=== PATIENT | female | born 1980 | race Caucasian/White ===

== ENCOUNTER 2017-03-27 01:16 | Inpatient (IN) | payer OTHER ==
[2017-03-27] MEDS ORDERED: SODIUM CHLORIDE 0.9% 1,000 ML IV STA (01:29)
--- NOTE | 2017-03-27 01:50 | ED ---
General Adult HPI - General Chief complaint: Abdominal Pain Stated complaint: abd pain Time Seen by Provider: 03/27/17 01:20 Source: patient, EMS, RN notes reviewed Mode of arrival: EMS Limitations: no limitations - History of Present Illness Initial comments: Patient 37-year-old female who presents emergency room today by EMS, the chief complaint of abdominal pain that began approximate 40 minutes prior to arrival. She does admit that she was drinking with some friends had approximately 4 beers also experiencing some abdominal discomfort in the upper abdomen. Patient states pain has resolved quite a bit at this time currently rates it a 2 /10. She states it did double her over at the time. States never experienced anything similar. She denies any other associated symptoms or complaints. Patient also admits to believing that she has a strep throat as she has noticed some white spots the posterior pharynx over the last week. Patient denies any recent fever, chills, shortness of breath, chest pain, back pain, vomiting, numbness or tingling, dysuria or hematuria, constipation or diarrhea, headaches or visual changes, or any other complaints. - Related Data Allergies Allergy/AdvReac Type Severity Reaction Status Date / Time No Known Allergies Allergy Verified 03/27/17 01:24 Review of Systems ROS Statement: Those systems with pertinent positive or pertinent negative responses have been documented in the HPI. ROS Other: All systems not noted in ROS Statement are negative. Past Medical History Past Medical History: Hypertension Additional Past Medical History / Comment(s): heart palpitations History of Any Multi-Drug Resistant Organisms: None Reported Past Surgical History: Section, Cholecystectomy Past Psychological History: Anxiety, Bipolar, Depression Smoking Status: Current every day smoker Past Alcohol Use History: Daily Past Drug Use History: None Reported General Exam - General Exam Comments Initial Comments: General: The patient is awake and alert, in no distress, and does not appear acutely ill. Eye: Pupils are equal, round and reactive to light, extra-ocular movements are intact. No nystagmus. There is normal conjunctiva bilaterally. No signs of icterus. Ears, nose, mouth and throat: There are moist mucous membranes and no oral lesions. Neck: The neck is supple, there is no tenderness or JVD. Cardiovascular: There is a regular rate and rhythm. No murmur, rub or gallop is appreciated. Respiratory: Lungs are clear to auscultation, respirations are non-labored, breath sounds are equal. No wheezes, stridor, rales, or rhonchi. Gastrointestinal: Patient has normal appearance abdomen. Normal bowel sounds. Abdomen soft on palpation. Patient does have some mild discomfort in the epigastric and left upper quadrants. No rebound tenderness. No guarding. Musculoskeletal: Normal ROM, no tenderness. Strength 5/5. Sensation intact. Pulses equal bilaterally 2+. Neurological: A&O x 3. CN II-XII intact, There are no obvious motor or sensory deficits. Coordination appears grossly intact. Speech is normal. Skin: Skin is warm and dry and no rashes or lesions are noted. Psychiatric: Cooperative, appropriate mood & affect, normal judgment. Limitations: no limitations Course Vital Signs 03/27/17 01:18 Temperature 97.4 F L Pulse Rate 94 Respiratory 16 Rate Blood Pressure 127/60 O2 Sat by Pulse 94 L Oximetry Disposition Referrals: Skylar Gregorio MD [Primary Care Provider] - 1-2 days
[2017-03-27 01:56] LABS: Appearance,Urine Clear (Clear); Bilirubin,Urine Negative (Negative); Glucose,Urine (UA) Negative (Negative); Ketones,Urine Negative (Negative); Leukocyte Esterase,Urine Negative (Negative); Mucus,Urine Rare /hpf; Nitrite,Urine Negative (Negative); PH, Urine 5.5 (5.0-8.0); Particle Count 2448; Protein,Urine Negative (Negative); RBC,Urine 1 /hpf (0-5); Specific Gravity,Urine 1.009 (1.001-1.035); Squamous Epithelial Cell,Urine 1 /hpf (0-4); UA Billing (MACRO vs. MICRO) MICRO; Urobilinogen,Urine <2.0 mg/dL (<2.0); WBC,Urine 1 /hpf (0-5)
[2017-03-27 02:13] LABS: Basophils # (A) 0.1 k/uL (0-0.2); Basophils % (A) 1 %; CH 30.7; CHCM 34.9; Eosinophils # (A) 0.5 k/uL (0-0.7); Eosinophils % (A) 6 %; HCT 40.4 % (34.0-46.0); HDW 2.48; HGB 13.3 gm/dL (11.4-16.0); Luc # (Auto) 0.21; Luc % (Auto) 2; Lymphocytes # (A) 2.5 k/uL (1.0-4.8); Lymphocytes % (A) 27 %; MCH 29.1 pg (25.0-35.0); MCHC 32.9 g/dL (31.0-37.0); MCV 88.5 fL (80.0-100.0); Mean Platelet Volume 10.4; Monocytes # (A) 0.5 k/uL (0-1.0); Monocytes % (A) 6 %; Neutrophils # (A) 5.2 k/uL (1.3-7.7); Neutrophils % (A) 58 %; RBC 4.57 m/uL (3.80-5.40); RDW 13.4 % (11.5-15.5); WBC (Perox) 9.11
[2017-03-27 02:18] LABS: ALT 59 U/L (9-52); AST 71 U/L (14-36); Alkaline Phosphatase 75 U/L (38-126); Amylase 190 U/L (30-110); Anion Gap 11 mmol/L; Blood Urea Nitrogen 8 mg/dL (7-17); Calcium 9.2 mg/dL (8.4-10.2); Carbon Dioxide 20 mmol/L (22-30); Chloride 107 mmol/L (98-107); Glucose 99 mg/dL (74-99); Non-African American GFR(MDRD) >60 (>60 ml/min/1.73 sqM); Potassium 3.8 mmol/L (3.5-5.1); Sodium 138 mmol/L (137-145); Total Bilirubin 0.6 mg/dL (0.2-1.3); Total Protein 6.8 g/dL (6.3-8.2)
--- NOTE | 2017-03-27 02:47 | XR ---
EXAM: XR Abdomen, 1 View CLINICAL HISTORY: Reason: pain TECHNIQUE: Frontal supine view of the abdomen/pelvis. COMPARISON: None. FINDINGS: Gastrointestinal tract: Unremarkable. No dilation. Organs: Patient status post cholecystectomy with clips seen in the right upper quadrant. No evidence of organomegaly. Bones/joints: Unremarkable. IMPRESSION: No acute findings.
[2017-03-27] MEDS ORDERED: KETOROLAC 30 MG/ML 1 ML VIAL IVP STA (03:09)
[2017-03-27] MEDS ORDERED: ACETAMINOPHEN TAB 325 MG TAB PO PRN (03:10)
[2017-03-27] MEDS ORDERED: NALOXONE 0.4 MG/ML 1 ML VIAL IV PRN (03:10)
[2017-03-27] MEDS ORDERED: KETOROLAC 30 MG/ML 1 ML VIAL IVP PRN (03:10)
[2017-03-27] MEDS ORDERED: HYDROmorphone 1 MG/ML 1 ML SYRINGE IV PRN (03:10)
[2017-03-27] MEDS ORDERED: HYDROcodone/APAP 5-325MG 1 EACH TAB PO PRN (03:10)
[2017-03-27] MEDS ORDERED: ONDANSETRON 4 MG/2 ML VIAL IVP PRN (03:10)
[2017-03-27] MEDS: SODIUM CHLORIDE 0.9% 1,000 ML IV SCH ×3 (03:42→18:08)
[2017-03-27] MEDS ORDERED: RX INFO: IV CONTRAST WAS GIVEN 1 EACH MISC MISCELLANE PRN (10:17)
--- NOTE | 2017-03-27 12:38 | CT ---
EXAMINATION TYPE: CT abdomen w con DATE OF EXAM: 03/27/2017 COMPARISON: NONE HISTORY: Acute pancreatitis and mononucleosis CT DLP: 1341 mGycm Automated exposure control for dose reduction was used. TECHNIQUE: Helical acquisition of images was performed from the lung bases through the top of iliac crest to include entire abdomen. CONTRAST: Performed without Oral Contrast and with IV Contrast, patient injected with 100 ml mL of Omnipaque 30 0. FINDINGS: Small umbilical hernia contains fat, upper aspect of the rectus muscle on the right shows s ome absence of the posterior fascia contains fat. LUNG BASES: No significant abnormality is appreciated. LIVER/GB: Liver shows low attenuation and is enlarged suggesting hepatic steatosis, gallbladder is ab sent. PANCREAS: No significant abnormality is seen. SPLEEN: Borderline enlarged. ADRENALS: No significant abnormality is seen. KIDNEYS: Subcentimeter focus of low attenuation associated with the lower pole left kidney is noted. Retroaortic left renal vein is noted incidentally. BOWEL: No significant abnormality is seen. LYMPH NODES: No significant abnormality is appreciated. OSSEOUS STRUCTURES: No significant abnormality is seen. FREE AIR: No Free Air visible ASCITES: None visible. RETROPERITONEAL ADENOPATHY: No Retroperitoneal Adenopathy visible. OTHER: IMPRESSION: HEPATIC STEATOSIS, POSTOP CHANGES. ABDOMINAL WALL HERNIA CONTAINING FAT. LOW DENSE FOCUS LEFT KIDNEY IS SUBCENTIMETER IN SIZE OF THE LOWER POLE. HEPATOSPLENOMEGALY.
[2017-03-27] MEDS ORDERED: cloNIDine HCL 0.1 MG TAB PO PRN (12:39)
--- NOTE | 2017-03-27 12:39 | P.HPIM ---
History of Present Illness H&P Date: 03/27/17 Chief Complaint: Abdominal pain, acute pancreatitis, alcoholism, hypertension This is a 57-year-old female patient of Dr. Gregorio with past history of hypertension, mild obesity, obstructive sleep apnea and chronic anemia who apparently drink heavily between 4-6 beers a day 5 days a week. Patient developed to have intractable mid abdominal pain radiating toward the left upper quadrant and radiating to toward the mid thoracic area in the back and right shoulder. Patient symptoms become much worse was associated with mild nausea and low-grade temperature with her current symptoms and nausea and vomiting ended up coming to the emergency department at [facility] where was seen and evaluated. Surprisingly her lipase was 6600 amylase was 119 and abnormal liver function tests with no elevated bilirubin. No other testing within the emergency room, patient was diagnosed with acute pancreatitis started on hydration pain management and admitted to the hospital with above problem. Into patient and her apparently drinks heavily for over 15 years has been drinking 5-7 beers daily almost for the last 3 years she is not able to quit but she think she can. Has not had any further episodes of pancreatitis previously which had mild episode of acute gastritis and diarrhea sometimes can last for a day or 2 and disappear on its own with mid abdominal pain occasionally. Review of Systems Constitutional: Reports anorexia, Reports chronic pain, Reports fatigue, Reports lethargy, Reports night sweats, Reports poor appetite, Reports weight loss, Denies as per HPI, Denies chills, Denies chronic headaches, Denies daytime sleepiness, Denies fever, Denies malaise, Denies sweats, Denies weakness , Denies weight gain Eyes: bilateral as per HPI Ears: bilateral: decreased hearing Ears, nose, mouth and throat: Reports nasal congestion, Reports nasal discharge , Reports sinus pain, Reports sinus pressure, Reports sore throat, Reports vertigo, Denies as per HPI, Denies ant. neck pain, Denies bleeding gums, Denies dental pain, Denies dysphagia, Denies epistaxis, Denies headache, Denies hoarseness, Denies mouth pain, Denies neck fullness/pressure, Denies neck lump, Denies nose pain, Denies odynophagia, Denies post-nasal drip, Denies swelling in mouth, Denies swelling in throat, Denies voice changes Breasts: bilateral: as per HPI Cardiovascular: Reports lightheadedness, Reports palpitations, Reports paroxysmal nocturnal dyspnea, Denies as per HPI, Denies chest pain, Denies claudication, Denies decreased exercise tolerance, Denies dyspnea on exertion, Denies edema, Denies high blood pressure, Denies irregular heart beat, Denies leg edema, Denies orthopnea, Denies phlebitis, Denies rapid heart beat, Denies shortness of breath, Denies syncope Respiratory: Reports congestion, Denies as per HPI, Denies cough, Denies cough with sputum, Denies dyspnea, Denies excessive sputum, Denies hemoptysis, Denies home oxygen, Denies pain, Denies pain on inspiration, Denies pleurisy, Denies respiratory infections, Denies sleep apnea, Denies snoring, Denies wheezing Gastrointestinal: Reports abdominal pain, Reports belching, Reports bloating, Reports constipation, Reports dyspepsia, Reports heartburn, Reports indigestion , Reports loss of appetite, Reports nausea, Denies as per HPI, Denies BRBPR, Denies change in bowel habits, Denies coffee ground emesis, Denies diarrhea, Denies early satiety, Denies excessive gas, Denies hematemesis, Denies hematochezia, Denies jaundice, Denies lactose intolerance, Denies melena, Denies vomiting Genitourinary: Reports dysuria, Reports urgency, Reports urinary frequency, Denies as per HPI, Denies abnormal vaginal bleeding, Denies decreased libido, Denies difficulty conceiving, Denies difficulty voiding, Denies dysmenorrhea, Denies dyspareunia, Denies flank pain, Denies genital sores, Denies hematuria, Denies hot flashes, Denies incomplete emptying, Denies kidney stones, Denies menorrhagia, Denies mixed incontinence, Denies nocturia, Denies pelvic pain, Denies post void dribbling, Denies , Denies prolapse symptoms, Denies stress incontinence, Denies urge incontinence, Denies vaginal discharge, Denies vaginal dryness, Denies vaginal itching, Denies vaginal odor Musculoskeletal: Reports low back pain, Reports myalgias, Denies as per HPI, Denies arm numbness/tingling, Denies atrophy, Denies fractures, Denies frequent falls, Denies gait dysfunction, Denies hot joints, Denies leg numbness/tingling , Denies limitation of motion, Denies loss of height, Denies morning stiffness, Denies muscle cramps, Denies muscle weakness, Denies neck pain, Denies neck stiffness, Denies prior amputations, Denies redness of joints, Denies shooting arm pain, Denies shooting leg pain Integumentary: Denies as per HPI, Denies acne, Denies boils, Denies brittle nails, Denies change in hair/nails, Denies color changes, Denies darkening of skin, Denies depigmentation, Denies dryness, Denies foot/leg ulcers, Denies growths, Denies hirsutism, Denies lesions, Denies onychomycosis, Denies pruritus , Denies rash, Denies sores, Denies striae, Denies unusual bruising, Denies wounds Neurological: Denies as per HPI, Denies aphasia, Denies ataxia, Denies balance difficulties, Denies burning pain, Denies change in mentation, Denies change in smell/taste, Denies change in speech, Denies confusion, Denies convulsions, Denies double vision, Denies gait dysfunction, Denies head injury, Denies headaches, Denies hearing difficulties, Denies lack of coordination, Denies loss of vision, Denies memory loss, Denies migraines, Denies motor disturbance, Denies numbness, Denies paralysis, Denies paresthesias, Denies seizures, Denies sensory deficit, Denies spasticity, Denies syncope, Denies tic, Denies tingling , Denies transient paralysis, Denies tremors, Denies vertigo, Denies weakness, Denies visual changes Psychiatric: Reports anxiety attacks, Reports depression, Denies as per HPI, Denies anhedonia, Denies anxiety, Denies change in appetite, Denies change in libido, Denies change in sleep habits, Denies confusion, Denies difficulty concentrating, Denies disorientation, Denies hallucinations, Denies hopelessness , Denies hypersomnia, Denies insomnia, Denies irritability, Denies memory loss, Denies mood swings, Denies paranoia, Denies sadness/tearfulness, Denies sleep disturbances, Denies suicidal ideation Endocrine: Reports fatigue, Reports flushing, Reports polyuria, Denies as per HPI, Denies cold intolerance, Denies deepening of the voice, Denies excessive sweating, Denies excessive thirst, Denies heat intolerance, Denies high blood sugars, Denies increase in ring/shoe/hat size, Denies low blood sugars, Denies nocturia, Denies palpitations, Denies polydipsia, Denies polyphagia, Denies proptosis, Denies recent glucocorticoid use, Denies thyroid mass, Denies weight change Hematologic/Lymphatic: Reports easy bruising, Denies as per HPI, Denies easy bleeding, Denies lymphadenopathy, Denies lymphedema, Denies thrombophilia Allergic/Immunologic: Denies as per HPI, Denies allergic rhinitis, Denies anaphylaxis, Denies angioedema, Denies gluten intolerance, Denies persistent infections, Denies seasonal allergies, Denies urticaria, Denies wheezing Past Medical History Past Medical History: Hypertension Additional Past Medical History / Comment(s): heart palpitations History of Any Multi-Drug Resistant Organisms: None Reported Past Surgical History: Section, Cholecystectomy Additional Past Surgical History / Comment(s): D&C in 1997 Past Anesthesia/Blood Transfusion Reactions: No Reported Reaction Past Psychological History: Anxiety, Bipolar, Depression Smoking Status: Current every day smoker Past Alcohol Use History: Daily Past Drug Use History: None Reported - Past Family History Mother Additional Family Medical History / Comment(s): Brain cancer, breast cancer, bladder cancer Medications and Allergies Home Medications Medication Instructions Recorded Confirmed Type Multivitamins, Thera [Multivitamin 1 tab PO DAILY 03/27/17 03/27/17 History (formulary)] Allergies Allergy/AdvReac Type Severity Reaction Status Date / Time No Known Allergies Allergy Verified 03/27/17 08:19 Physical Exam Vitals: Vital Signs Temp Pulse Pulse Resp BP BP Pulse Ox 03/27/17 08:00 97.5 F L 98 18 119/63 98 03/27/17 04:42 97.4 F L 82 18 126/80 97 03/27/17 03:43 98.0 F 80 16 136/65 98 03/27/17 01:18 97.4 F L 94 16 127/60 94 L Intake and Output 03/26/17 03/27/17 03/27/17 22:59 06:59 14:59 Intake Total 940 240 Output Total 250 Balance 690 240 Intake: Oral 940 240 Output: Urine 250 Other: # Voids 1 Weight 134.4 kg - Constitutional General appearance: no average body habitus, cooperative, no disheveled, no mild distress, no morbidly obese, no no acute distress, obese, no severe distress, no thin - EENT Eyes: no abnormal pupil, no anicteric sclerae, no disc margins sharp, no edentulous, no EOMI, no PERRLA, no fundus normal, no photophobia, no dentition normal, no poor dentition, no ptosis, no scleral icterus, normal appearance ENT: no hard of hearing, no hearing grossly normal, no NA/AT, normal oropharynx , no other, no pharyngeal erythema, no thrush, no tonsillar exudates, no tonsillar swelling Ears: bilateral: normal - Neck Neck: no lymphadenopathy, normal ROM, no other, no rigidity, no stridor, no thyromegaly Carotids: bilateral: upstroke normal Thyroid: bilateral: normal size - Respiratory Respiratory: bilateral: CTA, diminished, dullness - Cardiovascular Rhythm: regular Heart sounds: normal: S1, S2 Abnormal Heart Sounds: systolic murmur - Gastrointestinal General gastrointestinal: no absent bowel sounds, decreased bowel sounds, distended, no hepatomegaly, no hyperactive bowel sounds, no normal bowel sounds , no organomegaly, no rigid, no scaphoid, soft, no splenomegaly, tenderness, no umbilical hernia, no ventral hernia - Integumentary Integumentary: no calor, no cellulitis, no cyanotic, no decreased turgor, no flushed, no jaundiced, normal, no normal turgor, pale, no rash, no ulcer - Neurologic Neurologic: CNII-XII intact - Musculoskeletal Musculoskeletal: gait normal, generalized weakness, strength equal bilaterally, no right sided weakness, no left sided weakness - Psychiatric Psychiatric: A&O x's 3, appropriate affect Results CBC & Chem 7: 03/27/17 01:57 03/27/17 01:57 Labs: Abnormal Lab Results - Last 24 Hours (Table) 03/27/17 03/27/17 03/27/17 Range/Units 01:43 01:57 01:57 Plt Count 110 L (150-450) k/uL Carbon Dioxide 20 L (22-30) mmol/L AST 71 H (14-36) U/L ALT 59 H (9-52) U/L Amylase 190 H (30-110) U/L Lipase 6678 H (23-300) U/L Urine Blood Trace H (Negative) Hyaline Casts 3 H (0-2) /lpf Urine Mucus Rare H (None) /hpf Thrombosis Risk Factor Assmnt - DVT/VTE Prophylaxis DVT/VTE Prophylaxis: Pharmacologic Prophylaxis ordered, Mechanical Prophylaxis ordered - Choose All That Apply Each Factor Represents 1 point: Obesity (BMI >25), Varicose veins Thrombosis Risk Factor Assessment Total Risk Factor Score: 2 Thrombosis Risk Factor Assessment Level: Low Risk Assessment and Plan Plan: 1 severe acute abdominal pain: Secondary to acute pancreatitis in a chronic pancreatitis and gastritis try to treat underlying disease. 2 acute pancreatitis: Most likely alcohol-related with a current symptoms continue to treat pain hydration consult gastrology patient will be going for abdominal pelvis CAT scan find if she had any chronic finding of pancreatitis such as pseudocyst thickening or other finding. Continue current treatment repeat lipase and amylase continue to keep patient nothing by mouth for the next 24 hours. 3 acute on chronic gastritis: Patient will be on pantoprazole 40 mg daily. 4 hypertension: Has not been on any medications can benefit from being on clonidine 0.1 mg for systolic above 160. 5 obstructive sleep apnea: Has not been diagnosed officially and treated highly recommended to have patient seen in the very for obstructive sleep apnea and if needed CPAP will be needed. 6 smoking: Smoking cessation was addressed patient be on nicotine patch 14 mg daily. 7 chronic alcoholism: Patient will be on prophylaxis management with lorazepam for delirium tremor continue to watch for any change mental status. GI prophylaxis: Patient will be on pantoprazole. DVT prophylaxis: Patient will be on heparin subcutaneous. CODE STATUS: Full code. Expectation from's admission: Patient be in the hospital for more than 2 nights.
[2017-03-27] MEDS: HEPARIN SODIUM,PORCINE 5,000 UNIT/ML 1 ML VIAL SQ SCH (18:06)
[2017-03-28] MEDS: HEPARIN SODIUM,PORCINE 5,000 UNIT/ML 1 ML VIAL SQ SCH
[2017-03-28] MEDS: SODIUM CHLORIDE 0.9% 1,000 ML IV SCH (01:52)
[2017-03-28 06:41] LABS: Basophils % (A) 1 %; CH 30.3; CHCM 34.1; Eosinophils # (A) 0.4 k/uL (0-0.7); Eosinophils % (A) 7 %; HCT 37.9 % (34.0-46.0); HDW 2.47; HGB 12.5 gm/dL (11.4-16.0); Luc # (Auto) 0.12; Luc % (Auto) 2; Lymphocytes # (A) 1.8 k/uL (1.0-4.8); Lymphocytes % (A) 30 %; MCH 29.4 pg (25.0-35.0); MCV 89.2 fL (80.0-100.0); Monocytes # (A) 0.3 k/uL (0-1.0); Monocytes % (A) 4 %; Neutrophils # (A) 3.3 k/uL (1.3-7.7); Neutrophils % (A) 56 %; RBC 4.25 m/uL (3.80-5.40); RDW 13.4 % (11.5-15.5); WBC 5.9 k/uL (3.8-10.6); WBC (Perox) 6.17
[2017-03-28 06:57] LABS: ALT 96 U/L (9-52); AST 70 U/L (14-36); Alkaline Phosphatase 76 U/L (38-126); Amylase <30 U/L (30-110); Anion Gap 7 mmol/L; Blood Urea Nitrogen 7 mg/dL (7-17); Calcium 8.1 mg/dL (8.4-10.2); Carbon Dioxide 23 mmol/L (22-30); Chloride 110 mmol/L (98-107); Glucose 77 mg/dL (74-99); Non-African American GFR(MDRD) >60 (>60 ml/min/1.73 sqM); Potassium 3.9 mmol/L (3.5-5.1); Sodium 140 mmol/L (137-145); Total Bilirubin 0.6 mg/dL (0.2-1.3); Total Protein 5.7 g/dL (6.3-8.2)
[2017-03-28 08:28] LABS: Hepatitis B Surface Ag Index 0.05
[2017-03-28 08:34] LABS: Hepatitis B Core IgM Index 0.01
[2017-03-28 08:40] VITALS: RESP 19
[2017-03-28 08:46] LABS: Hepatitis C Virus IgG Ab Negative (Negative); Hepatitis C Virus IgG Index 0.02
[2017-03-28] MEDS ORDERED: PANTOPRAZOLE 40 MG/10 ML VIAL IVP SCH (09:00)
[2017-03-28] MEDS ORDERED: NICOTINE 14MG/24HR PATCH TRANSDERM SCH (09:00)
--- NOTE | 2017-03-28 09:45 | P.CONS ---
History of Present Illness - Reason for Consult Consult date: 03/28/17 Pancreatitis Requesting physician: Johnnie Hightower - History of Present Illness 37-year-old female with a history of cholecystectomy, morbid obesity BMI 46, obstructive sleep apnea, EtOH 10+ years presented with acute mid upper abdominal pain x 2 days. She was consuming several alcohol drinks 2-3 days weekly sometimes daily. White count 5.9-9. Hemoglobin 12.5-13.3. Platelet 110-174. Total bilirubin 0.6. AST 70-71. ALT 59-96. Alkaline phosphatase 75-76. Amylase 190. Lipase 6678. This morning amylase is less than 30. Lipase 157. Afebrile. CT abdomen hepatic steatosis with enlargement. No significant abnormality seen in the pancreas spleen borderline enlarged. Denies fever chills hematemesis hematochezia melena. Review of Systems Constitutional: Denies fever, chills, sweats, weight gain, or loss. HEENT: Negative for migraines, blurred vision or loss, earaches, drainage, tinnitus, oral mucosal lesions, dysphagia, or odynophagia. CARDIAC: Hypertension Negative for chest pain, arrhythmias, or palpitation. RESPIRATORY: Obstructive sleep apnea Negative for shortness of breath, hemoptysis, cough, or sputum production. GI: See HPI for pertinent findings. : Negative for hematuria, urgency, frequency, polyuria, or dysuria. GYNc: Denies possibility of . Negative vaginal discharge. MUSCULOSKELETAL: Negative for muscle aches, swelling, arthritis, and arthralgias. NEUROLOGIC: Negative for stroke or TIA. ENDOCRINE: Negative for thyroid problems. SKIN: Negative for rash or itching. PSYCHIATRIC: Negative history for depression and anxiety All systems: negative (See HPI) Past Medical History Past Medical History: Hypertension Additional Past Medical History / Comment(s): heart palpitations History of Any Multi-Drug Resistant Organisms: None Reported Past Surgical History: Section, Cholecystectomy Additional Past Surgical History / Comment(s): D&C in 1997 Past Anesthesia/Blood Transfusion Reactions: No Reported Reaction Past Psychological History: Anxiety, Bipolar, Depression Smoking Status: Current every day smoker Past Alcohol Use History: Daily Past Drug Use History: None Reported - Past Family History Mother Additional Family Medical History / Comment(s): Brain cancer, breast cancer, bladder cancer Medications and Allergies Home Medications Medication Instructions Recorded Confirmed Type Multivitamins, Thera [Multivitamin 1 tab PO DAILY 03/27/17 03/27/17 History (formulary)] Allergies Allergy/AdvReac Type Severity Reaction Status Date / Time No Known Allergies Allergy Verified 03/27/17 08:19 Physical Exam Vitals: Vital Signs Temp Pulse Resp BP BP Pulse Ox 03/28/17 00:10 98.3 F 74 18 140/76 97 03/27/17 19:56 97.8 F 86 20 134/63 99 03/27/17 17:55 97.9 F 82 20 152/87 97 03/27/17 12:48 98.9 F 87 16 143/89 97 03/27/17 08:00 97.5 F L 98 18 119/63 98 Intake and Output 03/27/17 03/28/17 03/28/17 22:59 06:59 14:59 Other: # Voids 2 General appearance: The patient is alert, oriented, in no acute distress. HET: Head is normocephalic and atraumatic. Pupils are equal and reactive. Oropharynx is clear without lesions. Neck: Supple without lymphadenopathy. Trachea midline. Heart: S1 S2. Regular rate and rhythm. Lungs: No crackles or wheezes are heard. Abdomen: Soft, very mild midepigastric tenderness, nondistended with bowel sounds. No peritoneal signs. No palpable organomegaly or masses. Extremities: Normal skin color and turgor. No cyanosis, rash, ulceration, clubbing, or edema. Radial and pedal pulses are 2/4 bilaterally. Neurological: No focal deficits. Strength and sensation are grossly intact. Results CBC & Chem 7: 03/28/17 06:10 03/28/17 06:10 Labs: Abnormal Lab Results - Last 24 Hours (Table) 03/28/17 Range/Units 06:10 Chloride 110 H (98-107) mmol/L Calcium 8.1 L (8.4-10.2) mg/dL AST 70 H (14-36) U/L ALT 96 H (9-52) U/L Total Protein 5.7 L (6.3-8.2) g/dL Albumin 3.2 L (3.5-5.0) g/dL Amylase <30 L (30-110) U/L Microbiology - Last 24 Hours (Table) 03/27/17 01:43 Group A Strep Throat Culture - Preliminary Throat CT scan - abdomen: report reviewed (Dr. Bush) Assessment and Plan (1) Alcohol-induced pancreatitis Status: Acute (2) Alcoholic hepatitis Status: Acute (3) Hepatic steatosis Status: Acute (4) Hepatosplenomegaly Status: Acute (5) Morbid obesity with BMI of 45.0-49.9, adult Status: Acute Plan: 1. Alcohol abstinence. Check hepatitis panel. 2. Slow advancement of diet low fat. 3. Discharge per medicine. Thank you for this kind referral and the opportunity to participate in the care of your patient. This consultation was discussed with Dr. Bush. The impression and plan of care have been directed as dictated.
[2017-03-28 12:27] VITALS: BP 144/74; PULSE 71; TEMP 98.4
--- NOTE | 2017-03-28 13:34 | P.DS ---
Providers Date of admission: 03/27/17 02:53 Expected date of discharge: 03/28/17 Attending physician: Johnnie Hightower Consults: 03/27/17 10:07 Consult Physician Routine Consulting Provider: Kaykay Sol Consult Reason/Comments: pancreatitis Do you want consulting provider notified?: Yes Primary care physician: Skylar Gregorio [facility] Course: This is a 37-year-old female patient of Dr. Gregorio with past history of hypertension, mild obesity, obstructive sleep apnea and chronic anemia who apparently drink heavily between 4-6 beers a day 5 days a week. Patient developed to have intractable mid abdominal pain radiating toward the left upper quadrant and radiating to toward the mid thoracic area in the back and right shoulder. Patient symptoms become much worse was associated with mild nausea and low-grade temperature with her current symptoms and nausea and vomiting ended up coming to the emergency department at [facility] where was seen and evaluated. Surprisingly her lipase was 6600 amylase was 119 and abnormal liver function tests with no elevated bilirubin. No other testing within the emergency room, patient was diagnosed with acute pancreatitis started on hydration pain management and admitted to the hospital with above problem. Into patient and her apparently drinks heavily for over 15 years has been drinking 5-7 beers daily almost for the last 3 years she is not able to quit but she think she can. Has not had any further episodes of pancreatitis previously which had mild episode of acute gastritis and diarrhea sometimes can last for a day or 2 and disappear on its own with mid abdominal pain occasionally. 03/28: Patient has been seen by GI. Today, amylase is less than 30 and lipase 157. AST remains at 70 and ALT is 96. Acute hepatitis panel is negative. Again reinforced need for patient stopped drinking alcohol completely. Patient will be discharged home today in stable condition. She denies having abdominal pain. Discharge diagnoses: 1 severe acute abdominal pain: Secondary to acute pancreatitis in a chronic pancreatitis and gastritis 2 acute pancreatitis: Most likely alcohol-related 3 acute on chronic gastritis 4 hypertension 5 obstructive sleep apnea and needs outpatient sleep study 6 smoking: Smoking cessation was addressed 7 chronic alcoholisme. Discharge plan: Return home Impression and plan of care have been directed as dictated by the signing physician. Luisa Miles nurse practitioner acting as scribe for signing physician. Cc: Dr. Gregorio Patient Condition at Discharge: Good Plan - Discharge Summary New Discharge Prescriptions: New cloNIDine HCL [Catapres] 0.05 mg PO BID #15 tab Nicotine 14Mg/24Hr Patch [Habitrol] 1 patch TRANSDERM DAILY #30 patch Continue Multivitamins, Thera [Multivitamin (formulary)] 1 tab PO DAILY Discharge Medication List Multivitamins, Thera [Multivitamin (formulary)] 1 tab PO DAILY 03/27/17 [History ] Nicotine 14Mg/24Hr Patch [Habitrol] 1 patch TRANSDERM DAILY #30 patch 03/28/17 [ Rx] cloNIDine HCL [Catapres] 0.05 mg PO BID #15 tab 03/28/17 [Rx] Follow up Appointment(s)/Referral(s): Kaykay Sol MD [STAFF PHYSICIAN] - 04/29/17 3:45 pm Skylar Gregorio MD [Primary Care Provider] - 04/04/17 1:45 pm Patient Instructions/Handouts: Pancreatitis (DC) Activity/Diet/Wound Care/Special Instructions: Have Dr. Tripathi schedule OP sleep study. Take your new medication catapres starting tonight and twice a day after until seen by your doctor. Discharge Disposition: HOME SELF-CARE
== END 2017-03-28 13:34 | disposition home or self-care (01) | DRG 440 ==
LOC: EC 01:16 → 6PED 02:53
PROVIDERS: ADMIT Internal Medicine Geriatric Medicine; ATTEND Internal Medicine Geriatric Medicine
DX: K85.20 Alcohol induced acute pancreatitis without necrosis or infection (principal); E66.01 Morbid (severe) obesity due to excess calories; K76.0 Fatty (change of) liver, not elsewhere classified; I10 Essential (primary) hypertension; G47.33 Obstructive sleep apnea (adult) (pediatric); G89.29 Other chronic pain; F10.20 Alcohol dependence, uncomplicated; R16.2 Hepatomegaly with splenomegaly, not elsewhere classified; K29.50 Unspecified chronic gastritis without bleeding; K29.00 Acute gastritis without bleeding; F32.9 Major depressive disorder, single episode, unspecified; F41.9 Anxiety disorder, unspecified; J39.2 Other diseases of pharynx; R63.4 Abnormal weight loss; R74.0 Nonspecific elevation of levels of transaminase and lactic acid dehydrogenase [LDH]; F17.200 Nicotine dependence, unspecified, uncomplicated; K86.0 Alcohol-induced chronic pancreatitis; Z80.8 Family history of malignant neoplasm of other organs or systems; Z80.3 Family history of malignant neoplasm of breast; Z80.52 Family history of malignant neoplasm of bladder; Z90.49 Acquired absence of other specified parts of digestive tract; Z71.6 Tobacco abuse counseling; Z71.41 Alcohol abuse counseling and surveillance of alcoholic; Z87.19 Personal history of other diseases of the digestive system; Z86.2 Personal history of diseases of the blood and blood-forming organs and certain disorders involving the immune mechanism; Z86.79 Personal history of other diseases of the circulatory system
CPT/HCPCS: 36415; 74000; 74160; 80053; 80074; 81001; 81025; 82150; 83690; 85025; 86308; 87081; 87430; 96374; 99285

== ENCOUNTER → 2017-04-04 | Outpatient (CLI) | payer OTHER ==
[2017-04-04 18:58] LABS: Basophils # (A) 0.1 k/uL (0-0.2); Basophils % (A) 1 %; CH 30.3; CHCM 34.9; Eosinophils # (A) 0.4 k/uL (0-0.7); Eosinophils % (A) 6 %; HCT 41.1 % (34.0-46.0); HDW 2.53; Luc # (Auto) 0.16; Luc % (Auto) 2; Lymphocytes # (A) 2.1 k/uL (1.0-4.8); Lymphocytes % (A) 27 %; MCH 29.7 pg (25.0-35.0); MCHC 34.1 g/dL (31.0-37.0); MCV 87.1 fL (80.0-100.0); Mean Platelet Volume 9.8; Monocytes # (A) 0.6 k/uL (0-1.0); Monocytes % (A) 7 %; Neutrophils # (A) 4.6 k/uL (1.3-7.7); Neutrophils % (A) 58 %; RBC 4.72 m/uL (3.80-5.40); RDW 13.5 % (11.5-15.5); WBC (Perox) 7.24
[2017-04-04 19:03] LABS: ALT 81 U/L (9-52); AST 43 U/L (14-36); Alkaline Phosphatase 73 U/L (38-126); Amylase <30 U/L (30-110); Anion Gap 11 mmol/L; Blood Urea Nitrogen 9 mg/dL (7-17); Calcium 9.9 mg/dL (8.4-10.2); Carbon Dioxide 25 mmol/L (22-30); Chloride 104 mmol/L (98-107); Cholesterol 167 mg/dL (<200); Glucose 98 mg/dL (74-99); HDL Cholesterol 51 mg/dL (40-60); Non-African American GFR(MDRD) >60 (>60 ml/min/1.73 sqM); Potassium 4.1 mmol/L (3.5-5.1); Sodium 140 mmol/L (137-145); Total Bilirubin 0.5 mg/dL (0.2-1.3); Total Protein 7.2 g/dL (6.3-8.2)
[2017-04-04 21:15] LABS: Hemoglobin A1C 5.4 % (4.2-6.1)
== END | disposition home or self-care (01) ==
LOC: MMGSC 15:14
PROVIDERS: ATTEND Family Medicine
DX: E66.9 Obesity, unspecified (principal); K85.90 Acute pancreatitis without necrosis or infection, unspecified; Z86.79 Personal history of other diseases of the circulatory system
CPT/HCPCS: 36415; 80053; 80061; 82150; 83036; 83690; 84439; 84443; 85025

== ENCOUNTER 2017-05-01 06:38 | Day surgery (SDC) | payer OTHER ==
[2017-04-26 11:02] VITALS: BMI 45.4
[~2017-05-01 06:38] MED LIST: DEXAMETHASONE SOD PHOSPHATE 10 MG/ML 1 ML VIAL IV ONE; HEPARIN SODIUM,PORCINE 5,000 UNIT/ML 1 ML VIAL SQ ONE; LACTATED RINGERS 1,000 ML IV SCH; LIDOCAINE 1% 20 ML VIAL (10MG/ML) FOR IV START INTRADERMA PRN; ONDANSETRON 4 MG/2 ML VIAL IVP ONE; SCOPOLAMINE 1.5MG/72HR PATCH TRANSDERM ONE; ceFAZolin 3 GM in SODIUM CHLORIDE 0.9% 100 ML IVPB ONE
[2017-05-01] MEDS ORDERED: BUPIVACAINE (PF) 0.25% 30 ML VIAL SQ ONE (07:17)
--- NOTE | 2017-05-01 07:56 | P.GSHP ---
History of Present Illness H&P Date: 05/01/17 Chief Complaint: Incarcerated umbilical hernia 's is a 37-year-old female who's had complaints of perineal pain. Her recent CAT scan shows evidence of an incarcerated umbilical hernia. She presents today for laparoscopic robotic-assisted repair. Past Medical History Past Medical History: Hypertension Additional Past Medical History / Comment(s): Heart palpitations, Hospitalized at [facility] 03/27-03/28/17 for pancreatitis., States she had [place] & enlarged spleen also. ,States she needs testing for sleep apnea. History of Any Multi-Drug Resistant Organisms: None Reported Past Surgical History: Section, Cholecystectomy Additional Past Surgical History / Comment(s): D&C in 1997 Past Anesthesia/Blood Transfusion Reactions: No Reported Reaction Past Psychological History: Anxiety, Bipolar, Depression Additional Psychological History / Comment(s): . Smoking Status: Heavy tobacco smoker Past Alcohol Use History: None Reported, Daily Additional Past Alcohol Use History / Comment(s): SMOKES 1 PPD. SMOKING SINCE 17 YEARS OLD. - SMOKING FOR 20 YEARS. STATES NO ALCOHOL SINCE HOSPITALIZED Mar WITH PANCREATITIS. STATES SHE WAS DRINKING 5-7 BEERS 2-3 TIMES PER WEEK. Past Drug Use History: None Reported - Past Family History Mother Additional Family Medical History / Comment(s): Brain cancer, breast cancer, bladder cancer Medications and Allergies Home Medications Medication Instructions Recorded Confirmed Type amLODIPine BESYLATE/BENAZEPRIL 1 cap PO DAILY 04/26/17 05/01/17 History [Lotrel 5-20 mg Capsule] Allergies Allergy/AdvReac Type Severity Reaction Status Date / Time morphine Allergy Unknown SORES, Verified 05/01/17 07:04 ITCHING Surgical - Exam Vital Signs Temp Pulse Resp BP Pulse Ox 98.0 F 87 16 125/67 97 05/01/17 07:07 05/01/17 07:07 05/01/17 07:07 05/01/17 07:07 05/01/17 07:07 BMI 45 - General well developed - Eyes PERRL - ENT normal pinna - Cardiovascular Rhythm: regular - Abdomen Abdomen: soft, non tender Hernia: umbilical (Incarcerated umbilical hernia) Assessment and Plan Plan: Incarcerated umbilical hernia. We'll perform laparoscopic robotic assistance repair.
[2017-05-01] MEDS ORDERED: KETOROLAC 30 MG/ML 1 ML VIAL ONE (08:00)
[2017-05-01] MEDS ORDERED: SUCCINYLCHOLINE CHLORIDE VIAL 200 MG/10 ML VIAL IV ONE (08:00)
[2017-05-01] MEDS ORDERED: PROPOFOL 10 MG/ML 20 ML VIAL IV ONE (08:00)
[2017-05-01] MEDS ORDERED: GLYCOPYRROLATE 0.2 MG/ML 2 ML VIAL ONE (08:00)
[2017-05-01] MEDS ORDERED: MIDAZOLAM 2 MG/2 ML VIAL ONE (08:00)
[2017-05-01] MEDS ORDERED: LIDOCAINE 1% INJ 10MG/ML (20 ML MDV) ONE (08:00)
[2017-05-01] MEDS ORDERED: fentaNYL (PF) 50 MCG/ML 2 ML AMP ONE (08:00)
[2017-05-01] MEDS ORDERED: HYDROmorphone (PF) 1 MG/ML ONE (08:00)
[2017-05-01] MEDS ORDERED: VECURONIUM 10 MG VIAL IV ONE (08:00)
[2017-05-01] MEDS ORDERED: NEOSTIGMINE 1 MG/ML 10 ML VIAL ONE (08:00)
--- NOTE | 2017-05-01 09:20 | P.OP ---
Date of Procedure: 05/01/17 Preoperative Diagnosis: Incarcerated umbilical hernia Postoperative Diagnosis: Adhesions Incarcerated umbilical hernia Procedure(s) Performed: Robotic-assisted repair of incarcerated umbilical hernia Lysis of adhesions Partial omentectomy Anesthesia: CLARA Surgeon: Mla Solano Estimated Blood Loss (ml): 20 Pathology: other (Incarcerated greater omentum) Condition: stable Disposition: PACU Description of Procedure: The patient's placed on the operating table in the supine position. She received general anesthesia. Her abdomen was prepped and draped in sterile fashion. The abdomen was entered in the left upper quadrant using a 5 mm optical trocar under direct visualization. The abdomen was then insufflated and then after adequate insufflation the 5 mm laparoscope was placed into the peritoneal cavity. Next a 8 mm robotic trochars placed in the left lower quadrant and a 12 mm trochars placed the left lateral position and the original 5 mm trocar was exchanged for an 8 mm robotic trocar. The patient's placed left side up position and then docked the robot. Patient had incarcerated fat within the umbilical hernia. This was dissected free using the hook cautery. The fascial defect was then closed with OV lock suture. The repair was then buttressed with ventral light ST mesh and this was secured with 2 OV lock suture the patient was then undocked from the robot. The needles were retrieved. The incarcerated tissue was removed. The 12 mm trocar site was closed with 0 Ethibond suture. The skin was closed interrupted 3-0 Monocryl suture. Dermabond was applied. Patient top she will well and was sent to recovery in stable condition.
[2017-05-01 09:40] VITALS: TEMP 96.8
[2017-05-01] MEDS: HYDROmorphone 1 MG/ML 1 ML SYRINGE IVP PRN ×4 (09:41→10:21)
[2017-05-01] MEDS ORDERED: LACTATED RINGERS 1,000 ML IV ONE (11:01)
[2017-05-01 11:13] VITALS: RESP 16
[2017-05-01 11:40] VITALS: BP 103/68
[2017-05-01 11:41] VITALS: PULSE 88
== END 2017-05-01 12:09 | disposition home or self-care (01) ==
LOC: OR 06:38
PROVIDERS: ATTEND Surgery
DX: K42.0 Umbilical hernia with obstruction, without gangrene (principal); K66.0 Peritoneal adhesions (postprocedural) (postinfection); I10 Essential (primary) hypertension; E66.01 Morbid (severe) obesity due to excess calories; Z68.42 Body mass index [BMI] 45.0-49.9, adult; F17.200 Nicotine dependence, unspecified, uncomplicated; Z79.899 Other long term (current) drug therapy; Z88.5 Allergy status to narcotic agent
CPT/HCPCS: 49587; S2900; 81025; 88302

== ENCOUNTER 2018-02-18 21:47 | Emergency (ER) | payer OTHER ==
[2018-02-18 22:12] VITALS: BP 172/98; PULSE 84; RESP 18; TEMP 98.4
[2018-02-19 05:01] LABS: Appearance,Urine Cloudy (Clear); Bilirubin,Urine Negative (Negative); Blood,Urine Negative (Negative); Color,Urine Yellow; Glucose,Urine (UA) Negative (Negative); Ketones,Urine Negative (Negative); Leukocyte Esterase,Urine Negative (Negative); Mucus,Urine Few /hpf; Nitrite,Urine Negative (Negative); PH, Urine 7.5 (5.0-8.0); Protein,Urine 1+ (Negative); RBC,Urine 9 /hpf (0-5); Specific Gravity,Urine 1.027 (1.001-1.035); Squamous Epithelial Cell,Urine 6 /hpf (0-4); WBC,Urine 1 /hpf (0-5)
[2018-02-19 05:11] LABS: ALT 51 U/L (9-52); AST 28 U/L (14-36); Albumin 4.1 g/dL (3.5-5.0); Alkaline Phosphatase 78 U/L (38-126); Amylase 38 U/L (30-110); Anion Gap 7 mmol/L; Blood Urea Nitrogen 12 mg/dL (7-17); Calcium 9.2 mg/dL (8.4-10.2); Carbon Dioxide 27 mmol/L (22-30); Chloride 106 mmol/L (98-107); GGT 45 U/L (12-43); Glucose 95 mg/dL (74-99); Lipase 145 U/L (23-300); Potassium 4.2 mmol/L (3.5-5.1); Sodium 140 mmol/L (137-145); Total Bilirubin 0.3 mg/dL (0.2-1.3); Total Protein 6.8 g/dL (6.3-8.2)
[2018-02-19 05:54] LABS: Basophils # (A) 0.1 k/uL (0-0.2); Basophils % (A) 1 %; Eosinophils # (A) 0.4 k/uL (0-0.7); Eosinophils % (A) 4 %; HCT 40.6 % (34.0-46.0); Lymphocytes # (A) 2.6 k/uL (1.0-4.8); Lymphocytes % (A) 25 %; MCH 29.7 pg (25.0-35.0); MCHC 34.6 g/dL (31.0-37.0); MCV 85.8 fL (80.0-100.0); Mean Platelet Volume 8.3; Monocytes # (A) 0.6 k/uL (0-1.0); Monocytes % (A) 6 %; Neutrophils # (A) 6.6 k/uL (1.3-7.7); Neutrophils % (A) 63 %; Platelet Count 219 k/uL (150-450); RBC 4.73 m/uL (3.80-5.40); RDW 13.9 % (11.5-15.5); WBC 10.4 k/uL (3.8-10.6)
== END 2018-02-19 02:54 | disposition home or self-care (01) ==
LOC: EC 21:47
DX: R10.31 Right lower quadrant pain (principal); R10.2 Pelvic and perineal pain; F17.200 Nicotine dependence, unspecified, uncomplicated; Z90.49 Acquired absence of other specified parts of digestive tract; Z87.19 Personal history of other diseases of the digestive system; Z79.899 Other long term (current) drug therapy; Z88.5 Allergy status to narcotic agent; Z53.29 Procedure and treatment not carried out because of patient's decision for other reasons
CPT/HCPCS: 36415; 80053; 81001; 81025; 82150; 82977; 83690; 85025; 99283

== ENCOUNTER 2018-09-30 21:32 | Emergency (ER) | payer OTHER ==
[2018-09-30] MEDS ORDERED: SODIUM CHLORIDE 0.9% 1,000 ML IV STA (21:41)
[2018-09-30] MEDS ORDERED: ASPIRIN 81 MG PO STA (21:41)
[2018-09-30 22:05] LABS: Basophils # (A) 0.1 k/uL (0-0.2); Basophils % (A) 1 %; Eosinophils # (A) 0.6 k/uL (0-0.7); Eosinophils % (A) 6 %; HCT 41.4 % (34.0-46.0); HGB 14.5 gm/dL (11.4-16.0); Lymphocytes # (A) 2.8 k/uL (1.0-4.8); Lymphocytes % (A) 28 %; MCH 29.2 pg (25.0-35.0); MCHC 34.9 g/dL (31.0-37.0); MCV 83.7 fL (80.0-100.0); Monocytes # (A) 0.5 k/uL (0-1.0); Monocytes % (A) 5 %; Neutrophils % (A) 60 %; Platelet Count 198 k/uL (150-450); RBC 4.94 m/uL (3.80-5.40); RDW 13.5 % (11.5-15.5)
[2018-09-30 22:14] LABS: ALT 61 U/L (9-52); AST 28 U/L (14-36); Albumin 4.3 g/dL (3.5-5.0); Alkaline Phosphatase 72 U/L (38-126); Anion Gap 8 mmol/L; Blood Urea Nitrogen 13 mg/dL (7-17); Calcium 9.5 mg/dL (8.4-10.2); Carbon Dioxide 27 mmol/L (22-30); Chloride 105 mmol/L (98-107); Glucose 133 mg/dL (74-99); Magnesium 1.8 mg/dL (1.6-2.3); Potassium 3.4 mmol/L (3.5-5.1); Sodium 140 mmol/L (137-145); Total Bilirubin 0.6 mg/dL (0.2-1.3); Total Protein 7.2 g/dL (6.3-8.2)
[2018-09-30 22:28] LABS: D-Dimer 0.22 mg/L FEU (<0.60); INR 0.9 (<1.2); Partial Thromboplastin Time 22.5 sec (22.0-30.0); Prothrombin Time 9.7 sec (9.0-12.0)
--- NOTE | 2018-09-30 23:08 | XR ---
EXAM: XR Chest, 2 Views CLINICAL HISTORY: ITS.REASON XR Reason: Chest Pain TECHNIQUE: Frontal and lateral views of the chest. COMPARISON: No relevant prior studies available. FINDINGS: Lungs: Mild lower lung opacities, possible atelectasis. No consolidation. Pleural space: Unremarkable. No pneumothorax. Heart: Unremarkable. Mediastinum: Unremarkable. Bones/joints: No acute fracture. IMPRESSION: Mild lower lung opacities, possible atelectasis. No consolidation.
--- NOTE | 2018-09-30 23:28 | ED ---
General Adult HPI - General Chief complaint: Chest Pain Stated complaint: Chest tightness, light headed, palpitations Time Seen by Provider: 09/30/18 21:41 Source: patient Mode of arrival: ambulatory Limitations: no limitations - History of Present Illness Initial comments: She is a previously healthy obese 38-year-old female presents to emergency department today for evaluation of palpitations throughout the evening. Patient reports that throughout the day today she is having palpitations and some chest pressure. Palpitations, worsened this evening which prompted her to come to the ER. Patient does state that her recently , they believe it was related to cardiac event. She reports that she's been under a lot of stress and she does begin crying when she explains this. Patient also states that she usually drinks 1-2 cups of coffee but did have 3 earlier today. Patient is no cardiac history no family history of early cardiac disease. She is a nonsmoker. - Related Data Home Medications Medication Instructions Recorded Confirmed Hydrochlorothiazide [Hydrodiuril] 25 mg PO DAILY 02/18/18 09/30/18 Amoxicillin 875 mg PO BID 09/30/18 09/30/18 Allergies Allergy/AdvReac Type Severity Reaction Status Date / Time morphine Allergy Unknown Rash/Hives Verified 09/30/18 22:10 Review of Systems ROS Statement: Those systems with pertinent positive or pertinent negative responses have been documented in the HPI. ROS Other: All systems not noted in ROS Statement are negative. Past Medical History Past Medical History: Hypertension Additional Past Medical History / Comment(s): Heart palpitations, Hospitalized at [facility] 03/27-03/28/17 for pancreatitis., States she had [place] & enlarged spleen also. ,States she needs testing for sleep apnea. History of Any Multi-Drug Resistant Organisms: None Reported Past Surgical History: Section, Cholecystectomy, Hernia Repair Additional Past Surgical History / Comment(s): D&C in 1997 Past Anesthesia/Blood Transfusion Reactions: No Reported Reaction Past Psychological History: Anxiety, Bipolar, Depression Smoking Status: Heavy tobacco smoker Past Alcohol Use History: Occasional Past Drug Use History: None Reported - Past Family History Mother Additional Family Medical History / Comment(s): Brain cancer, breast cancer, bladder cancer General Exam - General Exam Comments Initial Comments: Physical Exam GENERAL: Patient is well-developed and well-nourished. Patient is nontoxic and well- hydrated and is in no distress. HENT: Normocephalic, Atraumatic. EYES: PERRL, EOMI PULMONARY: Unlabored respirations. No audible rales rhonchi or wheezing was noted. CARDIOVASCULAR: There is a regular rate and rhythm without any murmurs gallops or rubs. ABDOMEN: Soft and nontender with normal bowel sounds. SKIN: Skin is clear with no lesions or rashes and otherwise unremarkable. : Deferred NEUROLOGIC: Patient is alert and oriented x3. Moving all extremities spontaneously MUSCULOSKELETAL: Normal extremities with adequate strength and full range of motion. No lower extremity swelling or edema. No calf tenderness. PSYCHIATRIC: Normal psychiatric evaluation. Limitations: no limitations Limitations: no limitations Course Vital Signs 09/30/18 10/01/18 21:33 00:06 Temperature 98.8 F 98.1 F Pulse Rate 97 84 Respiratory 16 18 Rate Blood Pressure 158/87 121/61 O2 Sat by Pulse 97 99 Oximetry EKG Findings - EKG Comments: EKG Findings:: EKG obtained at 9:47 PM, rate is 100 rhythm is sinus tachycardia , there is a normal axis there are normal intervals, WI 142, QRS 84, QTC is 446. There are no acute ST elevations or depressions there is no evidence of acute ischemia or infarction. Medical Decision Making - Medical Decision Making Patient was seen and evaluated, history is obtained from the patient is experiencing chest palpitations throughout the day today as well as some vague chest pressure. Patient is under significant emotional distress currently is was a recent of her in addition patient did have excessive caffeine intake today. Labs and chest x-ray were unremarkable. EKG was nonischemic. Patient's heart rate improved from 100s to the mid 80s she reports that she has been asymptomatic since arrival in the emergency department. She was observed for a couple of hours with no symptoms. At this time patient's comfortable with plan for outpatient follow-up. Questions pertaining care were answered return parameters were discussed patient was discharged home in stable condition. - Lab Data Result diagrams: 09/30/18 21:55 09/30/18 21:55 Lab Results 09/30/18 09/30/18 09/30/18 Range/Units 21:55 21:55 21:55 WBC 10.0 (3.8-10.6) k/uL RBC 4.94 (3.80-5.40) m/uL Hgb 14.5 (11.4-16.0) gm/dL Hct 41.4 (34.0-46.0) % MCV 83.7 (80.0-100.0) fL MCH 29.2 (25.0-35.0) pg MCHC 34.9 (31.0-37.0) g/dL RDW 13.5 (11.5-15.5) % Plt Count 198 (150-450) k/uL Neutrophils % 60 % Lymphocytes % 28 % Monocytes % 5 % Eosinophils % 6 % Basophils % 1 % Neutrophils # 6.0 (1.3-7.7) k/uL Lymphocytes # 2.8 (1.0-4.8) k/uL Monocytes # 0.5 (0-1.0) k/uL Eosinophils # 0.6 (0-0.7) k/uL Basophils # 0.1 (0-0.2) k/uL PT 9.7 (9.0-12.0) sec INR 0.9 (<1.2) APTT 22.5 (22.0-30.0) sec D-Dimer 0.22 (<0.60) mg/L FEU Sodium 140 (137-145) mmol/L Potassium 3.4 L (3.5-5.1) mmol/L Chloride 105 (98-107) mmol/L Carbon Dioxide 27 (22-30) mmol/L Anion Gap 8 mmol/L BUN 13 (7-17) mg/dL Creatinine 0.72 (0.52-1.04) mg/dL Est GFR (CKD-EPI)AfAm >90 (>60 ml/min/1.73 sqM) Est GFR (CKD-EPI)NonAf >90 (>60 ml/min/1.73 sqM) Glucose 133 H (74-99) mg/dL Calcium 9.5 (8.4-10.2) mg/dL Magnesium 1.8 (1.6-2.3) mg/dL Total Bilirubin 0.6 (0.2-1.3) mg/dL AST 28 (14-36) U/L ALT 61 H (9-52) U/L Alkaline Phosphatase 72 (38-126) U/L Troponin I (0.000-0.034) ng/mL NT-Pro-B Natriuret Pep pg/mL Total Protein 7.2 (6.3-8.2) g/dL Albumin 4.3 (3.5-5.0) g/dL 09/30/18 09/30/18 Range/Units 21:55 21:55 WBC (3.8-10.6) k/uL RBC (3.80-5.40) m/uL Hgb (11.4-16.0) gm/dL Hct (34.0-46.0) % MCV (80.0-100.0) fL MCH (25.0-35.0) pg MCHC (31.0-37.0) g/dL RDW (11.5-15.5) % Plt Count (150-450) k/uL Neutrophils % % Lymphocytes % % Monocytes % % Eosinophils % % Basophils % % Neutrophils # (1.3-7.7) k/uL Lymphocytes # (1.0-4.8) k/uL Monocytes # (0-1.0) k/uL Eosinophils # (0-0.7) k/uL Basophils # (0-0.2) k/uL PT (9.0-12.0) sec INR (<1.2) APTT (22.0-30.0) sec D-Dimer (<0.60) mg/L FEU Sodium (137-145) mmol/L Potassium (3.5-5.1) mmol/L Chloride (98-107) mmol/L Carbon Dioxide (22-30) mmol/L Anion Gap mmol/L BUN (7-17) mg/dL Creatinine (0.52-1.04) mg/dL Est GFR (CKD-EPI)AfAm (>60 ml/min/1.73 sqM) Est GFR (CKD-EPI)NonAf (>60 ml/min/1.73 sqM) Glucose (74-99) mg/dL Calcium (8.4-10.2) mg/dL Magnesium (1.6-2.3) mg/dL Total Bilirubin (0.2-1.3) mg/dL AST (14-36) U/L ALT (9-52) U/L Alkaline Phosphatase (38-126) U/L Troponin I <0.012 (0.000-0.034) ng/mL NT-Pro-B Natriuret Pep 51 pg/mL Total Protein (6.3-8.2) g/dL Albumin (3.5-5.0) g/dL Disposition Clinical Impression: Atypical chest pain, Heart palpitations Disposition: HOME SELF-CARE Instructions (If sedation given, give patient instructions): Chest Pain (ED), Heart Palpitations (ED) Is patient prescribed a controlled substance at d/c from ED?: No Referrals: Skylar Gregorio MD [Primary Care Provider] - 1-2 days
[2018-10-01 00:07] VITALS: BP 121/61; PULSE 84; RESP 18; TEMP 98.1
== END 2018-10-01 00:06 | disposition home or self-care (01) ==
LOC: EC 21:32
DX: R07.89 Other chest pain (principal); R00.2 Palpitations; I10 Essential (primary) hypertension; E66.9 Obesity, unspecified; Z68.30 Body mass index [BMI] 30.0-30.9, adult; F17.200 Nicotine dependence, unspecified, uncomplicated; Z79.899 Other long term (current) drug therapy; Z88.5 Allergy status to narcotic agent
CPT/HCPCS: 36415; 71046; 80053; 83735; 83880; 84484; 85025; 85379; 85610; 85730; 93005; 96360; 99285

== ENCOUNTER → 2018-10-10 | Outpatient (CLI) | payer OTHER ==
--- NOTE | 2018-10-10 13:22 | EST ---
EXERCISE STRESS DATE OF SERVICE: 10/10/2018 AGE: 38 SEX: Female HT: 66" WT: 286 pounds PROTOCOL: Carroll STAGE: III DURATION OF EXERCISE: 7 minutes HEART RATE REST: 83 BLOOD PRESSURE REST: 116/72 MAXIMUM HEART RATE ACHIEVED: 162 MAXIMUM BLOOD PRESSURE: 190/73 85% MPHR: 156 100% MPHR: 183 METS: 8.5 INDICATIONS: Chest discomfort. CLINICAL INFORMATION: STRESS DATA: Pretesting physical examination showed a heart rate of 83, pressure is 116/72 mmHg. Baseline EKG showed sinus mechanism. The patient exercised on the treadmill according to Carroll protocol for a total of 7 minutes and achieved 8.5 METs. Max heart rate was 162, which is about 88% of maximum predicted heart rate. Maximum blood pressure was 190/73 mmHg. Clinically, the patient did not have any symptoms of chest pain or chest discomfort during the testing or on recovery and the EKG did not show any significant ST or T-wave abnormalities concerning for ischemia. CONCLUSION: 1. Good exercise tolerance. 2. Shortness of breath in response to exercise. 3. Normal EKG in response to exercise without any ischemic ST or T-wave abnormalities seen. MMODL / IJN: [id number] /
== END | disposition home or self-care (01) ==
LOC: RADNMMAIN 09:04
PROVIDERS: ATTEND Family Medicine
DX: R07.89 Other chest pain (principal)
CPT/HCPCS: 93017

== ENCOUNTER 2018-12-01 18:04 | Emergency (ER) | payer OTHER ==
[2018-12-01 18:07] VITALS: BP 144/81; PULSE 90; RESP 18; TEMP 98.6
[2018-12-01] MEDS ORDERED: IBUPROFEN 600 MG TAB PO STA (18:14)
--- NOTE | 2018-12-01 18:36 | XR ---
EXAMINATION TYPE: XR ankle complete RT, XR foot complete RT DATE OF EXAM: 12/01/2018 CLINICAL HISTORY: Pain after fall injury 3 days ago. TECHNIQUE: Frontal, lateral and oblique images of the right ankle and foot are obtained. COMPARISON: None. FINDINGS: There is acute oblique minimally displaced intra-articular fracture through the lateral ma lleolus. There is mild to moderate adjacent soft tissue swelling. The medial and posterior malleoli are intact. The ankle mortise appears within normal limits. There is no acute fracture or dislocation evident in the right foot. Small to moderate size inferior calcaneal spur is noted. The joint spaces in the right foot are preserved. Overlying soft tissue is unremarkable. IMPRESSION: There is acute minimally displaced intra-articular oblique fracture through the lateral malleolus. (Initial encounter closed type post traumatic fracture)
--- NOTE | 2018-12-01 19:09 | ED ---
General Adult HPI - General Chief complaint: Extremity Injury, Lower Stated complaint: rt ankle injury Time Seen by Provider: 12/01/18 18:09 Source: patient, RN notes reviewed Mode of arrival: ambulatory Limitations: no limitations - History of Present Illness Initial comments: 38-year-old female presents to the emergency department for a chief right ankle injury 4 days. Patient states she was walking when she twisted her right ankle. States it has been painful to walk on since that time. States it is also swollen. Patient has not had Motrin and Tylenol or icing the area. Denies any pain in the foot.Patient has no other complaints at this time including shortness of breath, chest pain, abdominal pain, nausea or vomiting, headache, or visual changes. - Related Data Home Medications Medication Instructions Recorded Confirmed Hydrochlorothiazide [Hydrodiuril] 25 mg PO DAILY 02/18/18 09/30/18 Amoxicillin 875 mg PO BID 09/30/18 09/30/18 Allergies Allergy/AdvReac Type Severity Reaction Status Date / Time morphine Allergy Unknown Rash/Hives Verified 12/01/18 18:07 Review of Systems ROS Statement: Those systems with pertinent positive or pertinent negative responses have been documented in the HPI. ROS Other: All systems not noted in ROS Statement are negative. Past Medical History Past Medical History: Hypertension Additional Past Medical History / Comment(s): Heart palpitations, Hospitalized at [facility] 03/27-03/28/17 for pancreatitis., States she had [place] & enlarged spleen also. ,States she needs testing for sleep apnea. History of Any Multi-Drug Resistant Organisms: None Reported Past Surgical History: Section, Cholecystectomy, Hernia Repair Additional Past Surgical History / Comment(s): D&C in 1997 Past Anesthesia/Blood Transfusion Reactions: No Reported Reaction Past Psychological History: Anxiety, Bipolar, Depression Smoking Status: Current every day smoker Past Alcohol Use History: Occasional Past Drug Use History: None Reported - Past Family History Mother Additional Family Medical History / Comment(s): Brain cancer, breast cancer, bladder cancer General Exam Limitations: no limitations General appearance: alert, in no apparent distress Head exam: Present: atraumatic, normocephalic, normal inspection Eye exam: Present: normal appearance ENT exam: Present: normal exam, mucous membranes moist Neck exam: Present: normal inspection, full ROM. Absent: tenderness, meningismus, lymphadenopathy Respiratory exam: Present: normal lung sounds bilaterally. Absent: respiratory distress, wheezes, rales, rhonchi, stridor Cardiovascular Exam: Present: regular rate, normal rhythm, normal heart sounds. Absent: systolic murmur, diastolic murmur, rubs, gallop, clicks Extremities exam: Present: tenderness (Tenderness noted to the right lateral malleolus and inferior to the right lateral malleolus. No tenderness to the fifth metatarsal or navicular the right foot), normal capillary refill (Capillary refill less than 2 seconds, PT pulse 2+ in the right lower extremity), joint swelling (Patient does have edema with ecchymosis noted to the lateral malleolus of the right foot), other (Sensation intact in the right lower extremity). Absent: normal inspection, full ROM (Patient is able to plantar and dorsiflex the right ankle but states it is painful) Neurological exam: Present: alert, oriented X3, CN II-XII intact Psychiatric exam: Present: normal affect, normal mood Course Vital Signs 12/01/18 18:05 Temperature 98.6 F Pulse Rate 90 Respiratory 18 Rate Blood Pressure 144/81 O2 Sat by Pulse 100 Oximetry Procedures - Orthopedic Splinting/Casting Injury #1 Side: right Lower Extremity Injury Location: ankle Lower Extremity Immobilizer: stirrup splint Other Orthopedic Equipment: crutches Additional Comments: Neurovascular status intact after splint applied Medical Decision Making - Medical Decision Making 38-year-old female presents for right ankle pain after fall 4 days ago. Patient does have ecchymosis and tenderness noted to the right lateral malleolus. Neurovascular status intact. X-ray does show acute minimally displaced intra- articular a week fracture through the lateral malleolus. Splint was applied. Patient was given prescription for crutches. Patient will follow-up with orthopedics in one to 2 days. Discussed RICE therapy. Tylenol for pain. Discussed returning if she has any worsening symptoms. Disposition Clinical Impression: Ankle fracture, right Disposition: HOME SELF-CARE Condition: Good Instructions (If sedation given, give patient instructions): Ankle Fracture (ED) Additional Instructions: Please take Tylenol for pain. rest ice and elevate the right ankle. Please keep splint in place and do not get it wet. Use crutches. [facility] if you have any worsening symptoms. Is patient prescribed a controlled substance at d/c from ED?: No Referrals: Skylar Gregorio MD [Primary Care Provider] - 1-2 days Chris Robbins MD [Medical Doctor] - 1-2 days Time of Disposition: 19:07
== END 2018-12-01 19:18 | disposition home or self-care (01) ==
LOC: EC 18:04
DX: S82.61XA Displaced fracture of lateral malleolus of right fibula, initial encounter for closed fracture (principal); I10 Essential (primary) hypertension; F17.200 Nicotine dependence, unspecified, uncomplicated; Z88.5 Allergy status to narcotic agent; Z79.899 Other long term (current) drug therapy; Z86.19 Personal history of other infectious and parasitic diseases; W01.0XXA Fall on same level from slipping, tripping and stumbling without subsequent striking against object, initial encounter; Y93.01 Activity, walking, marching and hiking; Y92.009 Unspecified place in unspecified non-institutional (private) residence as the place of occurrence of the external cause
CPT/HCPCS: 29515; 99283

== ENCOUNTER 2019-11-03 12:01 | Emergency (ER) | payer OTHER ==
[2019-11-03 12:05] VITALS: RESP 18
[2019-11-03] MEDS ORDERED: ASPIRIN 81 MG PO STA (12:33)
--- NOTE | 2019-11-03 12:56 | XR ---
EXAMINATION TYPE: XR chest 2V DATE OF EXAM: 11/03/2019 COMPARISON: 09/30/2018 HISTORY: Chest pain TECHNIQUE: Frontal and lateral views of the chest are obtained. FINDINGS: There is no focal air space opacity. No evidence for pneumothorax. No pleural effusion. The cardiac silhouette size is within normal limits. The osseous structures are grossly intact. IMPRESSION: 1. No acute cardiopulmonary process.
[2019-11-03 13:01] LABS: Basophils # (A) 0.1 k/uL (0-0.2); Basophils % (A) 1 %; Eosinophils # (A) 0.5 k/uL (0-0.7); Eosinophils % (A) 7 %; HCT 41.3 % (34.0-46.0); HGB 14.1 gm/dL (11.4-16.0); Lymphocytes # (A) 1.7 k/uL (1.0-4.8); Lymphocytes % (A) 22 %; MCH 29.9 pg (25.0-35.0); MCHC 34.2 g/dL (31.0-37.0); MCV 87.4 fL (80.0-100.0); Mean Platelet Volume 9.9; Monocytes # (A) 0.5 k/uL (0-1.0); Monocytes % (A) 6 %; Neutrophils # (A) 4.9 k/uL (1.3-7.7); Neutrophils % (A) 62 %; Platelet Count 200 k/uL (150-450); RBC 4.72 m/uL (3.80-5.40); RDW 12.5 % (11.5-15.5); WBC 7.9 k/uL (3.8-10.6)
[2019-11-03 13:14] LABS: ALT 21 U/L (4-34); AST 23 U/L (14-36); African American GFR (CKD) >90 (>60 ml/min/1.73 sqM); Albumin 3.9 g/dL (3.5-5.0); Alkaline Phosphatase 59 U/L (38-126); Anion Gap 5 mmol/L; Blood Urea Nitrogen 6 mg/dL (7-17); Calcium 9.4 mg/dL (8.4-10.2); Carbon Dioxide 27 mmol/L (22-30); Chloride 104 mmol/L (98-107); Glucose 93 mg/dL (74-99); Magnesium 1.7 mg/dL (1.6-2.3); Non-African American GFR(CKD) >90 (>60 ml/min/1.73 sqM); Potassium 4.4 mmol/L (3.5-5.1); Sodium 136 mmol/L (137-145); Total Bilirubin 0.5 mg/dL (0.2-1.3); Total Protein 6.7 g/dL (6.3-8.2)
--- NOTE | 2019-11-03 13:17 | ED ---
Chest Pain HPI - General Chief Complaint: Chest Pain Stated Complaint: chest pain, cough, SOB Time Seen by Provider: 11/03/19 12:05 Source: patient Mode of arrival: ambulatory Limitations: no limitations - History of Present Illness Initial Comments: The patient is a 39-year-old female past medical history of hypertension presents to the emergency room with reported chest pain. She states that it is been constant for one week. Starts substernally and radiates to her left shoulder and through to her back. Denies any provocative factors. Does admit to associated shortness of breath and nausea. Admits to nonproductive cough. No fevers or chills. No sick contacts with similar symptoms. Denies reproducible pain with movement or breathing. Denies any numbness, tingling or weakness in her extremities. No previous cardiac history. States she had a stress test last year and it was normal. History of hypertension and has been well-controlled. She is not on any medications for her symptoms. No family history of sudden cardiac . No concern for . Denies abdominal pain or changes in bowel or bladder habits. There are no alleviating, precipitating or modifying factors - Related Data Home Medications Medication Instructions Recorded Confirmed Hydrochlorothiazide [Hydrodiuril] 25 mg PO DAILY 02/18/18 09/30/18 Amoxicillin 875 mg PO BID 09/30/18 09/30/18 Allergies Allergy/AdvReac Type Severity Reaction Status Date / Time morphine Allergy Unknown Rash/Hives Verified 11/03/19 12:05 Review of Systems ROS Statement: Those systems with pertinent positive or pertinent negative responses have been documented in the HPI. ROS Other: All systems not noted in ROS Statement are negative. EKG Findings - EKG Comments: EKG Findings:: EKG demonstrates a normal sinus rhythm with a ventricular rate of 71. ID interval 140. QRS 86. QTC of 410. No acute ST segment elevations or depressions concerning for ischemic changes Past Medical History Past Medical History: Hypertension Additional Past Medical History / Comment(s): Heart palpitations, Hospitalized at [facility] 03/27-03/28/17 for pancreatitis., States she had Rains & enlarged spleen also. ,States she needs testing for sleep apnea. History of Any Multi-Drug Resistant Organisms: None Reported Past Surgical History: Section, Cholecystectomy, Hernia Repair Additional Past Surgical History / Comment(s): D&C in 1997 Past Anesthesia/Blood Transfusion Reactions: No Reported Reaction Past Psychological History: Anxiety, Bipolar, Depression Smoking Status: Current every day smoker Past Alcohol Use History: Occasional Past Drug Use History: None Reported - Past Family History Mother Additional Family Medical History / Comment(s): Brain cancer, breast cancer, bladder cancer General Exam Limitations: no limitations General appearance: alert, in no apparent distress Head exam: Present: atraumatic, normocephalic, normal inspection Eye exam: Present: normal appearance, PERRL, EOMI. Absent: scleral icterus, conjunctival injection, periorbital swelling ENT exam: Present: normal exam, mucous membranes moist Neck exam: Present: normal inspection. Absent: tenderness, meningismus, lymphadenopathy Respiratory exam: Present: normal lung sounds bilaterally. Absent: respiratory distress, wheezes, rales, rhonchi, stridor Cardiovascular Exam: Present: regular rate, normal rhythm, normal heart sounds. Absent: systolic murmur, diastolic murmur, rubs, gallop, clicks GI/Abdominal exam: Present: soft, normal bowel sounds. Absent: distended, tenderness, guarding, rebound, rigid Extremities exam: Present: normal inspection, full ROM, normal capillary refill. Absent: tenderness, pedal edema, joint swelling, calf tenderness Back exam: Present: normal inspection Neurological exam: Present: alert, oriented X3, CN II-XII intact Psychiatric exam: Present: normal affect, normal mood Skin exam: Present: warm, dry, intact, normal color. Absent: rash Course Vital Signs 11/03/19 11/03/19 11/03/19 12:02 12:30 13:00 Temperature 98.4 F Pulse Rate 72 82 66 Respiratory 18 12 21 Rate Blood Pressure 141/83 128/80 128/80 O2 Sat by Pulse 100 99 100 Oximetry 11/03/19 11/03/19 13:30 14:00 Temperature 98.1 F Pulse Rate 74 72 Respiratory 18 18 Rate Blood Pressure 104/65 110/66 O2 Sat by Pulse 99 99 Oximetry Chest Pain MDM - MDM Upon arrival the patient was placed into room 5. A thorough history and physical exam was performed. A 12-lead EKG was performed which demonstrated no acute findings of ischemic changes. Peripheral IV is established. Laboratory studies were conducted. Patient does have a previous history of pancreatitis per her medical reports however the patient denies this. I did check a lipase and d-dimer level. Laboratory studies are unremarkable. D-dimer is less than 0.17. Troponin is less than 0.012. Urinalysis is negative. Lipase 193. Chest x-ray was performed which demonstrates no acute cardio pulmonary process. The patient was originally given 4 baby aspirins. I also provided her with 15 mg of IV Toradol. Patient was reassessed and does have improvement in her pain. I discussed diagnosis, differential treatment options. At this time the patient will be discharged home and needs to follow-up with primary care doctor in regards to completing a stress test and an echo. The patient does report she has a doctor's appointment tomorrow. I informed her that if she has any new or worsening symptoms if she were should return to the emergency room sooner. Patient was in agreement treatment plan she is discharged home in stable condition Disposition Clinical Impression: Chest pain Disposition: HOME SELF-CARE Condition: Stable Instructions (If sedation given, give patient instructions): Chest Pain (ED) Additional Instructions: Please follow-up with your doctor. I do recommend that you have stress testing and an echo of your heart performed. Return to the emergency room for any new or worsening symptoms Is patient prescribed a controlled substance at d/c from ED?: No Referrals: Mariann Wang MD [Primary Care Provider] - 1-2 days Time of Disposition: 14:18
[2019-11-03 13:20] LABS: Appearance,Urine Clear (Clear); Bilirubin,Urine Negative (Negative); Blood,Urine Negative (Negative); Color,Urine Light Yellow; Glucose,Urine (UA) Negative (Negative); Ketones,Urine Negative (Negative); Leukocyte Esterase,Urine Negative (Negative); Nitrite,Urine Negative (Negative); PH, Urine 6.5 (5.0-8.0); Protein,Urine Negative (Negative); Specific Gravity,Urine 1.003 (1.001-1.035); Urobilinogen,Urine <2.0 mg/dL (<2.0)
[2019-11-03 13:39] LABS: Prothrombin Time 9.9 sec (9.0-12.0)
[2019-11-03 13:44] LABS: D-Dimer <0.17 mg/L FEU (<0.60); Partial Thromboplastin Time 21.5 sec (22.0-30.0)
[2019-11-03] MEDS ORDERED: KETOROLAC 30 MG/ML 1 ML VIAL IVP STA (13:49)
[2019-11-03 14:01] VITALS: BP 110/66; PULSE 72; TEMP 98.1
== END 2019-11-03 14:27 | disposition home or self-care (01) ==
LOC: EC 12:01
DX: R07.9 Chest pain, unspecified (principal); I10 Essential (primary) hypertension; F17.200 Nicotine dependence, unspecified, uncomplicated; Z79.899 Other long term (current) drug therapy; Z88.5 Allergy status to narcotic agent; Z87.19 Personal history of other diseases of the digestive system
CPT/HCPCS: 36415; 93005; 85379; 80053; 83690; 83735; 84484; 85025; 85610; 85730; 81003; 71046; 99285; 96374; J1885